=== PATIENT | female | born 1950 | race Caucasian/White ===

== ENCOUNTER 2020-10-16 10:23 | Outpatient (CLI) | payer MEDICARE | END 2020-10-16 10:24 | disposition home or self-care (01) | LOC: CSHMAMMO 10:23 | PROVIDERS: ATTEND Family Medicine | DX: Z12.31 Encounter for screening mammogram for malignant neoplasm of breast (principal); M85.859 Other specified disorders of bone density and structure, unspecified thigh; M85.80 Other specified disorders of bone density and structure, unspecified site | CPT/HCPCS: 77063; 77067; 77080 ==

== ENCOUNTER 2021-11-20 09:11 | Outpatient (CLI) | payer MEDICARE | END 2021-11-20 09:12 | disposition home or self-care (01) | LOC: CSHMAMMO 09:11 | PROVIDERS: ATTEND Family Medicine | DX: Z12.31 Encounter for screening mammogram for malignant neoplasm of breast (principal); M85.88 Other specified disorders of bone density and structure, other site | CPT/HCPCS: 77063; 77067; 77080 ==